=== PATIENT | female | born 2000 | race Caucasian/White ===

== ENCOUNTER 2021-03-20 15:49 | Emergency (ER) | payer SELFPAY ==
[~2021-03-20] VITALS: Ht 175.3 cm; Wt 118.2 kg
[2021-03-20 16:03] VITALS: TEMP 96.7
[2021-03-20 16:18] LABS: COLLECTION METHOD CLEAN CATCH
[2021-03-20 16:27] LABS: MUCOUS Present /lpf; PH 5 (5-8); SQUAMOUS EPITHELIAL 20-50 /hpf; URINE APPEARANCE Cloudy; URINE BACTERIA None Seen /hpf; URINE BILIRUBIN Negative (NEGATIVE); URINE BLOOD Negative (NEGATIVE); URINE COLOR Yellow; URINE GLUCOSE Negative (NEGATIVE); URINE KETONE Negative (NEGATIVE); URINE LEUKOCYTE ESTERASE 3+ (NEGATIVE); URINE NITRATE Negative (NEGATIVE); URINE PROTEIN(semi-quant) 1+ (NEGATIVE); URINE UROBILINOGEN Negative (NEGATIVE); URINE WBC >50 /hpf
[2021-03-20 16:30] LABS: BASO # 0.1 (0.0-0.2); BASO % 0.4 % (0.0-2.0); EOS # 0.3 (0.0-0.7); EOS % 1.7 % (0-4.0); GRAN # 11.1 (1.4-6.5); GRAN % 75.1 % (42.2-75.2); HEMOGLOBIN 13.6 g/dl (12.5-16.0); LYMPH # 2.6 (1.2-3.4); LYMPH % 17.5 % (20.0-51.0); MEAN CELL VOLUME 89 fl (80.0-100.0); MEAN CORPUSCULAR HEMOGLOBIN 31 pg (27.0-31.0); MEAN CORPUSCULAR HGB CONC 35 g/dl (33.0-37.0); MEAN PLATELET VOLUME 10.5 fl (7.4-10.4); MONO # 0.7 (0.1-0.6); MONO % 4.9 % (1.7-9.3); PLATELET COUNT 276 K/mm3 (130-400); RED BLOOD COUNT 4.37 M/mm3 (4.10-5.30); REDCELL DISTRIBUTION WIDTH-CV 11.8 % (11.5-14.5)
[2021-03-20 16:43] LABS: ALBUMIN 4.4 gm/dL (3.5-5.0); BILIRUBIN,TOTAL 0.3 mg/dL (0.0-1.0); CALCIUM 9.3 mg/dL (8.4-10.2); CREATININE, serum 0.59 (0.52-1.25); POTASSIUM 3.9 mmol/L (3.4-5.0); TOTAL PROTEIN 8.1 gm/dL (6.4-8.2)
[2021-03-20] MEDS ORDERED: ZOFRAN 4MG T4 MG/TAB PO (17:47)
[2021-03-20] MEDS ORDERED: OMNICEF 300MG300 MG PO (17:47)
[2021-03-20 18:51] VITALS: BP 133/93; PULSE 76
== END 2021-03-20 18:52 | disposition home or self-care (01) ==
LOC: COL.ER 15:49
PROVIDERS: Nurse Practitioner Primary Care
DX: N30.00 Acute cystitis without hematuria (principal); Z87.442 Personal history of urinary calculi; Z32.02 Encounter for pregnancy test, result negative
CPT/HCPCS: J0696; J1885; J2270; J2405; J7030; Q9967